=== PATIENT | female | born 1990 | race Asian ===

== ENCOUNTER → 2016-08-25 | Outpatient (CLI) | payer OTHER ==
--- NOTE | 2016-08-25 16:04 | Diagnostic Imaging Report ---
INDICATION: OB ultrasound for dates. FINDINGS: There is a single live intrauterine fetus. [place]-rump length of 2.2 cm consistent with 8 weeks 6 day gestation. M-mode shows heartbeat of 170 beats per minute. No evidence of subchorionic hemorrhage. IMPRESSION: 8 week 6 day live intrauterine . Sonographic EDC would be 03/31/2017. Dictated by: Dictated on workstation # [id number]
== END ==
LOC: RAD 15:14
PROVIDERS: ATTEND Family Medicine
DX: Z34.01 Encounter for supervision of normal first pregnancy, first trimester (principal); Z3A.08 8 weeks gestation of pregnancy
CPT/HCPCS: 76801

== ENCOUNTER → 2016-11-07 | Outpatient (CLI) | payer OTHER ==
--- NOTE | 2016-11-07 17:25 | Diagnostic Imaging Report ---
INDICATION: Assessment for size and dates and anatomical evaluation. TECHNIQUE: Multiple real-time grayscale images were obtained of the gravid uterus. CORRELATION STUDY: None FINDINGS: Cervical length 5.5 cm. Single viable intrauterine is in currently variable presentation. Normal amount of amniotic fluid. Placenta is anterior and without previa. Visualized anatomical structures appearing unremarkable. Biometrical measurements are as follows: Biparietal diameter 4.45 cm, age 19 weeks 4 days. Head circumference 16.21 cm, age 19 weeks 0 days. Abdominal circumference 13.75 cm, age 19 weeks 2 days. Femur length 2.72 cm, age 18 weeks 3 days. Sonographic estimated age: 19 weeks 1 day. Sonographic estimated date of delivery: 04/02/2017. heart rate: 147 BPM Estimated Weight: 259 gm (+/- 38 gm) LMP Percentile: 16% IMPRESSION: 1. Single intrauterine in a variable presentation. Sonographic estimated age of 19 weeks 1 day for an estimated date of delivery of April 02, 2017. Dictated by: Dictated on workstation # [id number]
== END ==
LOC: RAD 16:03
PROVIDERS: ATTEND Family Medicine
DX: Z36 Encounter for antenatal screening of mother (principal); Z3A.19 19 weeks gestation of pregnancy
CPT/HCPCS: 76805

== ENCOUNTER 2017-04-02 10:09 | Inpatient (IN) | payer OTHER ==
[~2017-04-02] VITALS: Ht 152.4 cm; Wt 65.4 kg
[2017-04-02] VITALS (14 sets, daily range): BP systolic 101–159; BP diastolic 56–71
[2017-04-02] MEDS ORDERED: OXYTOCIN/NORMAL SALINE 500 ML IV ONE ×2 (10:48→13:28)
[2017-04-02] MEDS ORDERED: D5 LR IV SOLUTION 1,000 ML IV ONE (10:48)
[2017-04-02] MEDS ORDERED: D5 LR IV SOLUTION 1,000 ML IV SCH (10:48)
[2017-04-02] MEDS ORDERED: LIDOCAINE/EPI 2% 1:200,00 (XYLOCAINE) 10 ML VIAL ONE (10:48)
[2017-04-02 10:59] LABS: BASOPHILS % (AUTO) 0 % (0-10); EOSINOPHILS % (AUTO) 0 % (0-10); LYMPHOCYTES # (AUTO) 2.7 X 10^3 (1.0-4.0); LYMPHOCYTES % (AUTO) 23 % (12-44); MEAN CORPUSCULAR HEMOGLOBIN 29 PG (25-34); MEAN CORPUSCULAR HGB CONC 33 G/DL (32-36); MEAN CORPUSCULAR VOLUME 87 FL (80-99); MEAN PLATELET VOLUME 13.4 FL (7.4-10.4); MONOCYTES # (AUTO) 0.8 X 10^3 (0.0-1.0); MONOCYTES % (AUTO) 7 % (0-12); NEUTROPHILS # (AUTO) 8.3 X 10^3 (1.8-7.8); NEUTROPHILS % (AUTO) 70 % (42-75); PLATELET COUNT 188 10^3/uL (130-400); RED BLOOD COUNT 3.98 10^6/uL (4.35-5.85); WHITE BLOOD COUNT 11.9 10^3/uL (4.3-11.0)
[2017-04-02] MEDS ORDERED: LIDOCAINE/EPI 2% 1:100,00 (XYLOCAINE) 20 ML VIAL INJ PRN (11:00)
[2017-04-02] MEDS ORDERED: MINERAL OIL CONCENTRATE 99.9% 15 ML UDC TOP PRN (11:00)
[2017-04-02] MEDS ORDERED: CATHETER FLUSH 10 ML SYR IV PRN (11:00)
[2017-04-02] MEDS ORDERED: BUTORPHANOL INJ 2 MG/ML (STADOL) VIAL IV PRN (11:30)
[2017-04-02] MEDS ORDERED: ONDANSETRON 4 MG/2 ML (SDV) Z0FRAN IVP PRN (11:30)
--- NOTE | 2017-04-02 12:45 | History & Physical-OB ---
OB - Chief Complaint & HPI Date/Time Date of Admission: Date of Admission: Apr 02, 2017 at 10:42 Time Seen by Provider: 12:41 Chief Complaint/History OB-Reason for Admission/Chief: Onset of Labor (Ctxs started at 6AM) Hx : 1 Expected Date of Delivery: Mar 31, 2017 Gestational Age in Weeks: 40 Allergies and Home Medications Allergies Coded Allergies: No Known Drug Allergies (Unverified , 04/02/17) OB - History Hx of Present Care: Yes Ultrasounds: Normal mid trimester US Obstetrical Complications: Other (Hypothyroidism, treated with synthroid) Medical Complications: None Information Induced Hypertension: No Maternal Gestational Diabetes: No Hemorrhage: No Obstetrical History Hx : 1 Delivery History Adverse Rxn to Tranfusion: No Patient Past Medical History Hypothyroidism in Preg h/o Gastric Sleeve Social History/Family History HIV/AIDS: No Recent Infectious Disease Expo: No Sexually Transmitted Disease: No Alcohol Use: Denies Use Recreational Drug Use: No Immunizations Tetanus Booster (TDap): Less than 5yrs (01/29/17) Rubella: immune RPR/VDRL: Negative (Initial RPR Reactive, Neg Confirmatory testing) GBS Status: Negative HBsAG: Negative OB - Admission Exam Physical Exam Date Seen by Provider: Apr 02, 2017 Time Seen by Provider: 12:44 Vitals: Vital Signs 04/02/17 04/02/17 10:20 12:00 Temp 98.8 Pulse 59 Resp 18 B/P (MAP) 101/66 O2 Delivery Room Air Heart: Rhythm Normal Lungs: Clear Abdomen: Gravid Extremities: Normal Cervical Dilatation: 8cm Effacement: 100% Station: 0 Membranes: Ruptured Amniotic Fluid: Clear Contractions on Admission: < 5 Minutes Apart Labs Laboratory Tests Test 04/02/17 10:38 Range/Units White Blood Count 11.9 H 4.3-11.0 10^3/uL Red Blood Count 3.98 L 4.35-5.85 10^6/uL Hemoglobin 11.5 11.5-16.0 G/DL Hematocrit 35 35-52 % Mean Corpuscular Volume 87 80-99 FL Mean Corpuscular Hemoglobin 29 25-34 PG Mean Corpuscular Hemoglobin Concent 33 32-36 G/DL Red Cell Distribution Width 13.0 10.0-14.5 % Platelet Count 188 130-400 10^3/uL Mean Platelet Volume 13.4 H 7.4-10.4 FL Neutrophils (%) (Auto) 70 42-75 % Lymphocytes (%) (Auto) 23 12-44 % Monocytes (%) (Auto) 7 0-12 % Eosinophils (%) (Auto) 0 0-10 % Basophils (%) (Auto) 0 0-10 % Neutrophils # (Auto) 8.3 H 1.8-7.8 X 10^3 Lymphocytes # (Auto) 2.7 1.0-4.0 X 10^3 Monocytes # (Auto) 0.8 0.0-1.0 X 10^3 Eosinophils # (Auto) 0.0 0.0-0.3 10^3/uL Basophils # (Auto) 0.0 0.0-0.1 10^3/uL OB - Assessment/Plan/Diagnosis Assessment Assessment: active labor Plan Plan: Expectant Management Other Plan 27 yo G1 @ 40.2 wga admitted for active labor Plan - GBS Neg - Hypothyroidism: Will continue Synthroid 50mcg daily VIKA FOLRES MD Apr 02, 2017 12:45
[2017-04-02] MEDS: OXYTOCIN/NORMAL SALINE 500 ML IV SCH ×2 (13:20→13:50)
--- NOTE | 2017-04-02 13:55 | OB Labor & Delivery Record ---
Vag Delivery Note Vag Delivery Note Date of Delivery: 04/02/17 Preoperative Diagnosis: Rosa Britton is a (27 /Para 1 / ,Gestational Age (wks)40.2 admitted for active labor Postoperative Diagnosis: Same Surgeon: VIKA FLORES MD Early Years Teacher: [Justina Lopez MS3] Anesthesia: [None] Delivery Type: [] Findings: [Term female , normal placenta] Viable [Female] infant, apgars [9/9], weight [2880 grams] Lacerations: 2nd degree perineal lac, Right vaginal laceration Intact placenta with 3 vessel cord. No nuchal cord, body cord or shoulder dystocia Pitocin started after delivery of Estimated Blood Loss: [125] ml Complications: None Condition: Stable Description of Procedure: The patient is a [G1 now P1]who presented [ in active labor]. She was admitted and informed consent was obtained. Her labor course was unremarkable] She progressed to complete dilatation and began to push. She was then set up for delivery. The infant's head was delivered atraumatically in the [PHYLICIA] position. The shoulders and remainder of the ' s body were then delivered without difficulty. Upon delivery, infant was placed on mother's abdomen and stimulated by nurse. The cord was doubly clamped and cut by 's father An intact placenta with 3-vessel cord delivered via Marcin and there was found to be minimal bleeding.~ Vigorous fundal massage was performed and the fundus was found to be firm. IV oxytocin was given. Examination of the vagina and perineum revealed a [2nd degree] laceration repaired in the usual fashion with 3-0 vicryl suture and right vaginal wall laceration that did not require repair. Following the repair, sponge, instrument and needle counts were correct. Mom and baby were both in stable condition in the labor suite. Vitals - Labs Vital Signs - I&O Vital Signs Date Time Temp Pulse Resp B/P (MAP) Pulse Ox O2 Delivery O2 Flow Rate FiO2 04/02/17 12:00 59 18 101/66 Room Air 04/02/17 11:30 57 18 108/70 Room Air 04/02/17 11:00 64 18 101/67 Room Air 04/02/17 10:20 98.8 86 18 110/71 Room Air Labs Laboratory Tests 04/02/17 10:38: White Blood Count 11.9H, Red Blood Count 3.98L, Hemoglobin 11.5, Hematocrit 35, Mean Corpuscular Volume 87, Mean Corpuscular Hemoglobin 29, Mean Corpuscular Hemoglobin Concent 33, Red Cell Distribution Width 13.0, Platelet Count 188, Mean Platelet Volume 13.4H, Neutrophils (%) (Auto) 70, Lymphocytes (%) (Auto) 23 , Monocytes (%) (Auto) 7, Eosinophils (%) (Auto) 0, Basophils (%) (Auto) 0, Neutrophils # (Auto) 8.3H, Lymphocytes # (Auto) 2.7, Monocytes # (Auto) 0.8, Eosinophils # (Auto) 0.0, Basophils # (Auto) 0.0 VIKA FLORES MD Apr 02, 2017 13:55
[2017-04-02] MEDS ORDERED: WITCH HAZEL(TUCKS) 40 EA JAR TOP PRN (14:00)
[2017-04-02] MEDS ORDERED: BENZOCAINE/MENTHOL (DERMOPLAST) 56 ML CAN TP PRN (14:00)
[2017-04-02] MEDS ORDERED: CATHETER FLUSH 10 ML SYR IV SCH (14:00)
[2017-04-02] MEDS: IBUPROFEN 600 MG (MOTRIN) TAB PO SCH ×2 (14:06→20:17)
[2017-04-03 02:27] VITALS: BP 100/64
[2017-04-03] MEDS: IBUPROFEN 600 MG (MOTRIN) TAB PO SCH ×4 (02:29→21:14)
[2017-04-03 06:41] VITALS: BP 104/68
[2017-04-03] MEDS: LEVOTHYROXINE 50 MCG (LEVOTHROID) TAB PO SCH (06:43)
[2017-04-03] MEDS: PRENATAL VITAMIN 1 EA TAB PO SCH (06:44)
[2017-04-03 07:02] LABS: BASOPHILS % (AUTO) 0 % (0-10); EOSINOPHILS % (AUTO) 0 % (0-10); LYMPHOCYTES # (AUTO) 2.7 X 10^3 (1.0-4.0); LYMPHOCYTES % (AUTO) 19 % (12-44); MEAN CORPUSCULAR HEMOGLOBIN 29 PG (25-34); MEAN CORPUSCULAR HGB CONC 33 G/DL (32-36); MEAN CORPUSCULAR VOLUME 88 FL (80-99); MONOCYTES % (AUTO) 7 % (0-12); NEUTROPHILS % (AUTO) 75 % (42-75); PLATELET COUNT 159 10^3/uL (130-400); RED BLOOD COUNT 3.37 10^6/uL (4.35-5.85); RED CELL DISTRIBUTION WIDTH 13.2 % (10.0-14.5); WHITE BLOOD COUNT 14.7 10^3/uL (4.3-11.0)
[2017-04-03 08:00] VITALS: BP 102/59
--- NOTE | 2017-04-03 08:46 | Progress Note (SOAP) ---
Subjective Subjective/Events-last exam Doing well. . Lochia decreased. Minimal pain. Review of Systems Date Seen by Provider: Apr 03, 2017 Time Seen by Provider: 08:46 Objective Exam Last Set of Vital Signs Vital Signs Date Time Temp Pulse Resp B/P (MAP) Pulse Ox O2 Delivery O2 Flow Rate FiO2 04/03/17 06:41 98.4 82 18 104/68 99 Room Air Capillary Refill : General: Alert, Oriented X3, Cooperative Abdomen: Soft (uterus firm) Psych/Mental Status: Mood NL Results/Procedures Lab Laboratory Tests 04/02/17 10:38: White Blood Count 11.9H, Red Blood Count 3.98L, Hemoglobin 11.5, Hematocrit 35, Mean Corpuscular Volume 87, Mean Corpuscular Hemoglobin 29, Mean Corpuscular Hemoglobin Concent 33, Red Cell Distribution Width 13.0, Platelet Count 188, Mean Platelet Volume 13.4H, Neutrophils (%) (Auto) 70, Lymphocytes (%) (Auto) 23 , Monocytes (%) (Auto) 7, Eosinophils (%) (Auto) 0, Basophils (%) (Auto) 0, Neutrophils # (Auto) 8.3H, Lymphocytes # (Auto) 2.7, Monocytes # (Auto) 0.8, Eosinophils # (Auto) 0.0, Basophils # (Auto) 0.0 04/03/17 06:55: White Blood Count 14.7H, Red Blood Count 3.37L, Hemoglobin 9.8L, Hematocrit 30L , Mean Corpuscular Volume 88, Mean Corpuscular Hemoglobin 29, Mean Corpuscular Hemoglobin Concent 33, Red Cell Distribution Width 13.2, Platelet Count 159, Mean Platelet Volume 13.0H, Neutrophils (%) (Auto) 75, Lymphocytes (%) (Auto) 19 , Monocytes (%) (Auto) 7, Eosinophils (%) (Auto) 0, Basophils (%) (Auto) 0, Neutrophils # (Auto) 11.0H, Lymphocytes # (Auto) 2.7, Monocytes # (Auto) 1.0, Eosinophils # (Auto) 0.0, Basophils # (Auto) 0.0 Assessment/Plan Assessment/Plan Plan PPD#1 s/p 04/02/17 2nd degree laceration repair Hypothyroidism - continue post- care - plan DC home tomorrow - continued on Synthroid 50mcg/d Diagnosis/Problems: Clinical Quality Measures DVT/VTE Risk/Contraindication: Risk Factor Score Per Nursin RFS Level Per Nursing on Admit: 1=Low/No VTE PPX BROCK ESTRADA DO Apr 03, 2017 08:46
[2017-04-03 12:45] VITALS: BP 111/72
[2017-04-03 17:24] VITALS: BP 96/68
[2017-04-03 21:15] VITALS: BP 94/60
[2017-04-04 03:10] VITALS: BP 93/61
[2017-04-04] MEDS: IBUPROFEN 600 MG (MOTRIN) TAB PO SCH ×2 (03:11→08:33)
[2017-04-04 08:20] VITALS: BP 103/66
[2017-04-04] MEDS: PRENATAL VITAMIN 1 EA TAB PO SCH (08:33)
[2017-04-04] MEDS: LEVOTHYROXINE 50 MCG (LEVOTHROID) TAB PO SCH (08:35)
--- NOTE | 2017-04-04 09:25 | Discharge Summary ---
Diagnosis/Chief Complaint Date of Admission Apr 02, 2017 at 10:42 Date of Discharge 04/04/17 Admission Diagnosis Admission Diagnosis Labor, Term Discharge Diagnosis Term , Delivered Vaginal Delivery Hypothyroidism Chief Complaint/HPI Chief Complaint/HPI at 40 2/7 wks gestation was admitted in active labor. complicated by hypothyroidism. On levothyroxine. Discharge Summary-Simple/Stand Procedures Spontaneous Vaginal Delivery Consultations Tax Manager Public Discharge Physical Examination Allergies: Coded Allergies: No Known Drug Allergies (Unverified , 04/02/17) Vitals & I&Os Vital Sign - Last 12Hours Date Time Temp Pulse Resp B/P (MAP) Pulse Ox O2 Delivery O2 Flow Rate FiO2 04/04/17 03:10 98.2 61 18 93/61 99 04/03/17 06:41 Room Air General Appearance: Alert, Oriented X3, Cooperative, No Acute Distress HEENT: Atraumatic, EOMI, Mucous Memb Moist/[place] Respiratory: Clear to Auscultation, Normal Air Movement Cardiovascular: Regular Rate, Normal S1, Normal S2, No Murmurs Abdominal: Normal Bowel Sounds, Soft, No Tenderness, No Hepatosplenomegaly, No Masses, Other (post gravid uterus) Extremities: No Clubbing, No Cyanosis, No Edema, No Tenderness/Swelling Skin: No Rashes, No Breakdown, No Significant Lesion Neuro: Normal Gait, Normal Speech, Normal Tone, Sensation Intact, Cranial Nerves 3-12 NL Psych/Mental Status: Mental Status NL, Mood NL Hospital Course See final discharge diagnosis. Labs Laboratory Tests 04/02/17 10:38 04/03/17 06:55 Discussion & Recommendations Discharge to home Follow up with Dr. Wright in 6 weeks, sooner if needed Discharge Condition at discharge Stable Instructions to patient/family Please see electronic discharge instructions given to patient. Discharge Medications Reviewed and agree with Discharge Medication list on patient's Discharge Instruction sheet Clinical Quality Measures DVT/VTE Risk/Contraindication: Risk Factor Score Per Nursin RFS Level Per Nursing on Admit: 1=Low/No VTE PPX FELISHA REYNA DO Apr 04, 2017 09:25
--- NOTE | 2017-04-04 14:25 | Discharge Instructions ---
Discharge Inst-Women's Serv Depart Medications New, Converted or Re-Newed RX: Transmitted to Pharmacy Final Diagnosis Vaginal Delivery of Term Hypothyroidism State Follow Up/Instructions Goal/Follow Up: Follow up with Dr. Wright in 6 weeks Patient Instructions: Prescriptions for Motrin 600 mg and Colace 100 mg sent to [facility]. Nothing per vagina for 6 weeks. Activity Activity: Activity as Tolerated Driving Instructions: You May Drive NO SMOKING: NO SMOKING Nothing Inside Vagina: No Douching, No [place], No Tampons Diet Discharge Diet: No Restrictions Return to The Hospital For: Fever >100.4 after Tylenol, severe pain uncontrolled by medications, heavy bleeding - saturating 1 pad per hour for two hours in a row, passage of clot larger than size of your fist, or any other life threatening concerns Symptoms to Report to : Swelling Increased, Bleeding Excessive, Eyesight Changes, Pain Increased, Urine Color Change, Fever Over 101 Degrees F, Pain/ Pressure in Chest, Urination Difficulty, Vaginal Bleeding Increase, Lightheadedness, Vaginal Discharge Foul, Questions/Concerns, Dizziness/Fainting For Any Problems or Questions: Contact Your Physician Skin/Wound Care Bathing Instructions: Aba Huang MARGARET E DO Apr 04, 2017 14:25
== END 2017-04-04 15:37 | disposition home or self-care (01) | DRG 775 ==
LOC: WSo 10:09 → LDRP 10:10 → WSo 10:11 → LDRP 10:42
PROVIDERS: ADMIT Family Medicine; ATTEND Family Medicine
PROC: 10E0XZZ Delivery of Products of Conception, External Approach (ICD-10-PCS; principal; 2017-04-02)
PROC: 0KQM0ZZ Repair Perineum Muscle, Open Approach (ICD-10-PCS; 2017-04-02)
DX: O99.283 Endocrine, nutritional and metabolic diseases complicating pregnancy, third trimester (principal); E03.9 Hypothyroidism, unspecified; O70.1 Second degree perineal laceration during delivery; O99.843 Bariatric surgery status complicating pregnancy, third trimester; O48.0 Post-term pregnancy; Z3A.40 40 weeks gestation of pregnancy; Z37.0 Single live birth
CPT/HCPCS: 36415; 85025; 86850; 86900; 86901; 99212

== ENCOUNTER 2017-07-02 13:06 | Emergency (ER) | payer OTHER ==
[~2017-07-02] VITALS: Ht 157.5 cm; Wt 59.0 kg
[2017-07-02] MEDS ORDERED: BIRTH CONTROL (13:32)
[2017-07-02] MEDS ORDERED: RX-NAPROXEN (NAPROSYN) 250 MG TAB PPK#4 PO STA (13:39)
[2017-07-02] MEDS ORDERED: RX-PENICILLIN V K 250MG TAB PPK#4 PO STA (13:39)
[2017-07-02] MEDS ORDERED: PENI500T PO (13:43)
[2017-07-02] MEDS ORDERED: NAPR-1070 PO (13:43)
--- NOTE | 2017-07-02 13:43 | ED EENT ---
History of Present Illness General Chief Complaint: Dental Problems/Pain Stated Complaint: DENTAL PAIN Nursing Triage Note: RIGHT LOWER DENTAL PAIN X4 DAYS. Source: patient Exam Limitations: no limitations History of Present Illness Time seen by provider: 13:41 Initial Comments To ER with right lower dental pain for 4 days. She is breast-feeding. No fevers chills or swelling. Timing/Duration: abrupt Severity: moderate Location: mouth Associated Symptoms: facial pain/swelling Allergies and Home Medications Allergies Coded Allergies: No Known Drug Allergies (Unverified , 04/02/17) Home Medications [ Control] , (Reported) Review of Systems Constitutional: see HPI Eyes: No Symptoms Reported Ears: No Symptoms Reported Nose: no symptoms reported Mouth: see HPI, pain Throat: no symptoms reported Respiratory: no symptoms reported Cardiovascular: no symptoms reported Musculoskeletal: no symptoms reported Skin: no symptoms reported Neurological: No Symptoms Reported Hematologic/Lymphatic: No Symptoms Reported Immunological/Allergic: no symptoms reported Past Xspipvx-[id number]-Fzicij Hx Patient Social History Alcohol Use: Denies Use Recreational Drug Use: No Smoking Status: Never a Smoker Recent Foreign Travel: No Contact w/Someone Who Travel: No Recent Infectious Disease Expo: No Recent Hopitalizations: No Immunizations Up To Date Tetanus Booster (TDap): Less than 5yrs Seasonal Allergies Seasonal Allergies: No Surgeries History of Surgeries: Yes (Gastric Sleeve) Respiratory History of Respiratory Disorde: No Cardiovascular History of Cardiac Disorders: No Neurological History of Neurological Disord: No Reproductive System : No (BREAST FEEDING) Last Menstrual Period: Jun 26, 2017 Sexually Transmitted Disease: No HIV/AIDS: No Female Reproductive Disorders: Denies Genitourinary History of Genitourinary Disor: No Gastrointestinal History of Gastrointestinal Di: No Musculoskeletal History of Musculoskeletal Dis: No Endocrine History of Endocrine Disorders: No HEENT History of HEENT Disorders: No Cancer History of Cancer: No Psychosocial History of Psychiatric Problem: No Integumentary History of Skin or Integumenta: No Blood Transfusions History of Blood Disorders: No Adverse Reaction to a Blood Tr: No Family Medical History Family Medial History: Diabetes mellitus 19 FATHER Physical Exam Vital Signs Vital Sign - Last 12Hours 07/02/17 13:22 Temp 98.0 Pulse 60 B/P (MAP) 103/87 (92) Pulse Ox 98 General Appearance: WD/WN, no apparent distress Eyes: bilateral eye normal inspection, bilateral eye PERRL, bilateral eye EOMI Ears: bilateral ear auricle normal, bilateral ear canal normal, bilateral ear TM normal Nose: normal inspection Mouth/Throat: dental tenderness, No mandibular swelling, No maxillary swelling Neck: non-tender, full range of motion Cardiovascular: regular rate, rhythm, no murmur Respiratory: no respiratory distress, no accessory muscle use Neurologic/Psychiatric: alert, normal mood/affect, oriented x 3 Progress/Results/Core Measures Results/Orders Vital Signs/I&O Vital Sign - Last 12Hours 07/02/17 13:22 Temp 98.0 Pulse 60 B/P (MAP) 103/87 (92) Pulse Ox 98 Blood Pressure Mean: 92 Departure Impression Impression: Primary Impression: Dental caries Disposition: HOME, SELF-CARE Condition: Stable Departure-Patient Inst. Decision time for Depature: 13:42 Referrals: VIKA FLORES MD (PCP/Family) Primary Care Physician Patient Instructions: Dental Pain (DC) Add. Discharge Instructions: 1. Make an appointment to go see your dentist tomorrow. If you do not have a dentist go to [facility] on [address] 2. Take the antibiotics and pain medication as directed. All discharge instructions reviewed with patient and/or family. Voiced understanding. Scripts Naproxen Sodium (Anaprox Ds) 550 Mg Tablet 550 MG PO BID Y for PAIN-SEVERE, #30 TAB Prov: LAZ BORRERO APRN 07/02/17 Penicillin V Potassium (Penicillin V Potassium) 500 Mg Tablet 500 MG PO QID, #28 TAB Prov: LAZ BORRERO APRN 07/02/17 LAZ BORRERO APRN Jul 02, 2017 13:43
[2017-07-02] MEDS ORDERED: RX-AMOXICILLIN 500 MG CAP #3 PPK PO STA (13:47)
[2017-07-02 13:50] VITALS: BP 103/87
== END 2017-07-02 13:50 | disposition home or self-care (01) ==
LOC: EDUNIT# 13:06 → ER 13:08
DX: K02.9 Dental caries, unspecified (principal); Z98.84 Bariatric surgery status
CPT/HCPCS: 99284